=== PATIENT | female | born 1990 | race Caucasian/White ===

== ENCOUNTER 2016-08-31 01:13 | Inpatient (IN) | payer BC ==
[~2016-08-31] VITALS: Ht 175.3 cm; Wt 143.3 kg
[2016-08-31 03:44] LABS: HEMOGLOBIN 10.4 gm/dl (12.3-15.3); RED BLOOD COUNT 3.9 M/UL (4.00-5.10)
[2016-09-01 02:37] LABS: HEMOGLOBIN 9.4 gm/dl (12.3-15.3)
[2016-09-01] MEDS ORDERED: COLACE 100MG C100 MG PO (12:00)
== END 2016-09-01 16:12 | disposition home or self-care (01) | DRG 775 ==
LOC: GENOP 01:13 → OB 03:17
PROVIDERS: Obstetrics & Gynecology; ADMIT Obstetrics & Gynecology
PROC: 10E0XZZ Delivery of Products of Conception, External Approach (ICD-10-PCS; principal; 2016-08-31)
PROC: 0KQM0ZZ Repair Perineum Muscle, Open Approach (ICD-10-PCS; 2016-08-31)
PROC: 0UQMXZZ Repair Vulva, External Approach (ICD-10-PCS; 2016-08-31)
DX: O70.1 Second degree perineal laceration during delivery (principal); Z37.0 Single live birth; Z3A.40 40 weeks gestation of pregnancy; O70.0 First degree perineal laceration during delivery
CPT/HCPCS: 36415; 51702; 81001; 82800; 85014; 85018; 85025; J2300; J2590; J2795; J3010; J3430; J7120

== ENCOUNTER 2021-05-06 23:34 | Emergency (ER) | payer OTHER ==
[~2021-05-06 23:34] MED LIST: COLACE 100MG C100 MG PO; PREDNISONE20 MG PO; ZITHROMAX250 MG PO
[2021-05-07 04:30] LABS: RED BLOOD COUNT 4.58 M/UL (4.00-5.10); WHITE BLOOD COUNT 8.5 K/UL (4.5-11.0)
[2021-05-07 05:03] LABS: BUN/CREATININE RATIO 19 (0-10)
== END 2021-05-07 07:20 | disposition home or self-care (01) ==
LOC: ER1 23:34
PROVIDERS: Physician Assistant
DX: U07.1 COVID-19 (principal); Z23 Encounter for immunization
CPT/HCPCS: 71045; 80053; 82550; 82553; 83615; 83874; 84484; 85025; 86140; 99283; M0245